=== PATIENT | male | born 1965 | race Caucasian/White ===

== ENCOUNTER 2017-08-31 21:11 | Observation (INO) | payer SELFPAY ==
[~2017-08-31] VITALS: Ht 190.5 cm; Wt 62.5 kg
[2017-08-31 21:15] VITALS: BP 128/91; PULSE 79; RESP 18; TEMP 98.1; O2SAT 98
[2017-08-31 21:30] VITALS: BP 139/92; PULSE 97; RESP 16; O2SAT 100
--- NOTE | 2017-08-31 21:39 | PD ---
HPI Chief Complaint: Chest Pain Time Seen by Provider: 21:26 Travel History International Travel<30 days: No Contact w/Intl Traveler<30days: No Traveled to known affect area: No History of Present Illness HPI 51-year-old male here for evaluation of chest pain. The patient was having chest pain that started before going to work today at 6:30 AM. Pain is across his entire anterior chest and radiates up into his neck, described as pressure, worse with inspiration and leaning forward. He smokes a pack of cigarettes daily. He denies any known history of cardiac disease. He no longer has a physician because he states his primary care physician retired. He is not on any medications. No history of DVT or PE. No fevers, chills, cough, or recent illness. No paresthesias or motor deficits. Patient reports that he went to work today and the pain has been constant throughout the day, intermittently worse at times, currently 7 out of 10. He is unsure if there is any family history of cardiac disease, however he states his brother of unknown causes at the age of 28 and his father at 73 of unknown causes last year. [facility] Past Medical History Medical History: Denies Significant Hx Immunizations Current: No Tetanus Vaccination: Unknown Influenza Vaccination: No Past Surgical History Surgical History: No Previous Surgery Social History Alcohol Use: Yes (2-3 BEERS DAILY) Tobacco Use: Yes (1 1/2 PPD) Substance Use: No Allergies-Medications (Allergen,Severity, Reaction): Coded Allergies: No Known Allergies (Unverified , 08/31/17) Reported Meds & Prescriptions Reported Meds & Active Scripts Active No Active Prescriptions or Reported Medications Review of Systems Except as stated in HPI: all other systems reviewed are Neg Physical Exam Narrative GENERAL: Well-developed, well-nourished, comfortable, no apparent distress. SKIN: Focused skin assessment warm/dry. HEAD: Atraumatic. Normocephalic. EYES: Pupils equal and round. No scleral icterus. No injection or drainage. ENT: Mucous membranes pink and moist. NECK: Trachea midline. No JVD. CARDIOVASCULAR: Regular rate and rhythm. Distal pulses brisk and equal bilaterally. RESPIRATORY: No accessory muscle use. Clear to auscultation. Breath sounds equal bilaterally. GASTROINTESTINAL: Abdomen soft, non-tender, nondistended. MUSCULOSKELETAL: No obvious deformities. No clubbing. No cyanosis. No edema. NEUROLOGICAL: Awake and alert. No obvious cranial nerve deficits. Motor grossly within normal limits. Normal speech. PSYCHIATRIC: Appropriate mood and affect; insight and judgment normal. Data Data Last Documented VS Vital Signs Date Time Temp Pulse Resp B/P (MAP) Pulse Ox O2 Delivery O2 Flow Rate FiO2 08/31/17 23:18 14 08/31/17 22:46 88 145/87 (106) 100 Nasal Cannula 2.00 08/31/17 21:15 98.1 Orders Orders Electrocardiogram (08/31/17 21:31) Ckmb (Isoenzyme) Profile (08/31/17 21:31) Complete Blood Count With Diff (08/31/17 21:31) Comprehensive Metabolic Panel (08/31/17 21:31) D-Dimer (08/31/17 21:31) Magnesium (Mg) (08/31/17 21:31) Prothrombin Time / Inr (Pt) (08/31/17 21:31) Act Partial Throm Time (Ptt) (08/31/17 21:31) Troponin I (08/31/17 21:31) Lipase (08/31/17 21:31) Chest, Single Ap (08/31/17 21:31) Ecg Monitoring (08/31/17 21:31) Bilateral Bp Monitoring (08/31/17 21:31) Iv Access Insert/Monitor (08/31/17 21:31) Oximetry (08/31/17 21:31) Oxygen Administration (08/31/17 21:31) Aspirin Chew (Aspirin Chew) (08/31/17 21:45) Sodium Chloride 0.9% Flush (Ns Flush) (08/31/17 21:45) Nitroglycerin Sl (Nitrostat Sl) (08/31/17 21:45) CKMB (08/31/17 21:30) CKMB% (08/31/17 21:30) Morphine Inj (Morphine Inj) (08/31/17 22:45) Ct Pulmonary Angiogram (08/31/17 22:31) Morphine Inj (Morphine Inj) (08/31/17 22:45) Iohexol 350 Inj (Omnipaque 350 Inj) (08/31/17 23:28) Labs Laboratory Tests Test 08/31/17 21:30 White Blood Count 10.6 TH/MM3 Red Blood Count 4.47 MIL/MM3 Hemoglobin 14.4 GM/DL Hematocrit 42.5 % Mean Corpuscular Volume 95.3 FL Mean Corpuscular Hemoglobin 32.3 PG Mean Corpuscular Hemoglobin Concent 34.0 % Red Cell Distribution Width 12.2 % Platelet Count 204 TH/MM3 Mean Platelet Volume 9.7 FL Neutrophils (%) (Auto) 64.6 % Lymphocytes (%) (Auto) 18.1 % Monocytes (%) (Auto) 9.5 % Eosinophils (%) (Auto) 3.9 % Basophils (%) (Auto) 3.9 % Neutrophils # (Auto) 6.8 TH/MM3 Lymphocytes # (Auto) 1.9 TH/MM3 Monocytes # (Auto) 1.0 TH/MM3 Eosinophils # (Auto) 0.4 TH/MM3 Basophils # (Auto) 0.4 TH/MM3 CBC Comment DIFF FINAL Differential Comment Prothrombin Time 10.0 SEC Prothromb Time International Ratio 0.9 RATIO Activated Partial Thromboplast Time 31.2 SEC D-Dimer Quantitative (PE/DVT) 0.27 MG/L FEU Blood Urea Nitrogen 17 MG/DL Creatinine 1.00 MG/DL Random Glucose 82 MG/DL Total Protein 7.9 GM/DL Albumin 4.2 GM/DL Calcium Level 8.4 MG/DL Magnesium Level 2.3 MG/DL Alkaline Phosphatase 66 U/L Aspartate Amino Transf (AST/SGOT) 31 U/L Alanine Aminotransferase (ALT/SGPT) 32 U/L Total Bilirubin 0.3 MG/DL Sodium Level 131 MEQ/L Potassium Level 3.9 MEQ/L Chloride Level 95 MEQ/L Carbon Dioxide Level 25.5 MEQ/L Anion Gap 11 MEQ/L Estimat Glomerular Filtration Rate 79 ML/MIN Total Creatine Kinase 219 U/L Creatine Kinase MB 5.2 NG/ML Troponin I LESS THAN 0.02 NG/ML Lipase 173 U/L MDM Medical Decision Making Medical Screen Exam Complete: Yes Emergency Medical Condition: Yes Interpretation(s) EKG: Sinus, rate 81, normal axis, normal intervals, Q waves in septal leads, no acute ischemic abnormality. Differential Diagnosis ACS, pneumothorax, pericarditis, PE, pneumonia, musculoskeletal pain, pleurisy, dissection, Narrative Course Initial vital signs show heart rate 79, blood pressure 128/91, pulse ox 98% on room air, oral temp of 98.1F. CBC: WBC 10.6, hemoglobin 14.4, hematocrit 42.5, platelets 204. CMP is remarkable for sodium 131, chloride 91, otherwise essentially unremarkable. Lipase is 173. Cardiac enzymes are negative. Chest x-ray: No acute cardiopulmonary disease. The patient was given a full aspirin and 2 sublingual nitroglycerin with continued chest pain. He states his pain is much worse with inspiration. Despite a negative d-dimer, CT pulmonary angiogram was ordered to rule out PE or possible dissection. CT pulmonary angiogram: CONCLUSION: Nodular and cavitary process in the right lung is most probably inflammatory. Followup with short interval CT in 3 months versus further evaluation with PET/ CT is suggested. 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 No recent upper respiratory symptoms. Patient will be admitted to the chest pain center for further cardiac evaluation. He is amenable to this plan. He was made aware of all findings and was provided a copy of the CT pulmonary angiogram. Case discussed with hospitalist Dr. Zapien who will admit the patient to his service for further cardiac evaluation as well as pulmonary consultation. Diagnosis Primary Impression: Chest pain Qualified Codes: R07.9 - Chest pain, unspecified Additional Impressions: Pulmonary nodule Pulmonary cavitary lesion Admitting Information Admitting Physician Requests: Observation Scripts No Active Prescriptions or Reported Meds Suhail Bell MD Aug 31, 2017 21:39
[2017-08-31] MEDS ORDERED: ASPIRIN 81 MG CHEW TAB PO ONE (21:45)
[2017-08-31] MEDS ORDERED: SODIUM CHLORIDE 0.9% FLUSH 10 ML FLUSH IVF PRN (21:45)
[2017-08-31 21:49] LABS: AUTOMATED NEUTROPHIL # 6.8 TH/MM3 (1.8-7.7); BASOPHIL # 0.4 TH/MM3 (0-0.2); BASOPHIL % 3.9 % (0.0-2.0); EOSINOPHIL # 0.4 TH/MM3 (0-0.4); EOSINOPHIL % 3.9 % (0.0-4.0); HEMATOCRIT 42.5 % (39.0-51.0); HEMOGLOBIN 14.4 GM/DL (13.0-17.0); LYMPH % 18.1 % (9.0-44.0); LYMPHOCYTE # 1.9 TH/MM3 (1.0-4.8); MEAN CELL VOLUME 95.3 FL (80.0-100.0); MEAN CORPUSCULAR HEMOGLOBIN 32.3 PG (27.0-34.0); MEAN PLATELET VOLUME 9.7 FL (7.0-11.0); MONO % 9.5 % (0.0-8.0); NEUT % 64.6 % (16.0-70.0); PLATELET COUNT 204 TH/MM3 (150-450); RED BLOOD COUNT 4.47 MIL/MM3 (4.50-5.90); RED CELL DISTRIBUTION WIDTH 12.2 % (11.6-17.2); WHITE BLOOD COUNT 10.6 TH/MM3 (4.0-11.0)
[2017-08-31] MEDS: NITROGLYCERIN 0.4 MG SL 25 TABS/BTL SL SCH ×3 (21:55→22:30)
[2017-08-31 21:56] LABS: CHLORIDE 95 MEQ/L (98-107); SODIUM (NA) 131 MEQ/L (136-145)
--- NOTE | 2017-08-31 21:56 | RADRPT ---
EXAM DATE/TIME: 08/31/2017 21:38 [facility] COMPARISON: No previous studies available for comparison. INDICATIONS : Chest pain. MEDICAL HISTORY : None. SURGICAL HISTORY : None. ENCOUNTER: Initial ACUITY: 1 day PAIN SCORE: 10/10 LOCATION: Bilateral chest FINDINGS: A single AP erect portable view of the chest was obtained and demonstrates no confluent infiltrates o r effusions. The heart and mediastinal structures are within normal limits. The bony thorax is intact . There are overlying electrocardiogram leads. CONCLUSION: No acute cardiopulmonary disease. Nixon Rea MD on August 31, 2017 at 21:50 Board Certified Radiologist. This report was verified electronically.
[2017-08-31 22:01] LABS: ALBUMIN 4.2 GM/DL (3.4-5.0); BICARBONATE 25.5 MEQ/L (21.0-32.0); CALCIUM 8.4 MG/DL (8.5-10.1); GLUCOSE,RANDOM 82 MG/DL (74-106); INTERNATIONAL NORMALIZED RATIO 0.9 RATIO; LIPASE 173 U/L (73-393)
[2017-08-31 22:02] LABS: BLOOD UREA NITROGEN 17 MG/DL (7-18); MAGNESIUM 2.3 MG/DL (1.5-2.5)
[2017-08-31 22:04] LABS: ALT (GPT) 32 U/L (12-78); AST (GOT) 31 U/L (15-37); GLOMERULAR FILTRATION RATE 79 ML/MIN (>89)
[2017-08-31 22:05] LABS: TOTAL BILIRUBIN ADULT 0.3 MG/DL (0.2-1.0); TOTAL PROTEIN 7.9 GM/DL (6.4-8.2)
[2017-08-31 22:06] LABS: ALKALINE PHOSPHATASE 66 U/L (45-117); TROPONIN I LESS THAN 0.02 NG/ML (0.02-0.05)
[2017-08-31 22:16] LABS: D-DIMER 0.27 MG/L FEU (0.00-0.50)
[2017-08-31 22:30] VITALS: BP 145/87; PULSE 77; RESP 15; O2SAT 99
[2017-08-31] MEDS ORDERED: MORPHINE SULFATE 8 MG/ML INJ IV PUSH ONE (22:45)
[2017-08-31] MEDS ORDERED: MORPHINE SULFATE 4 MG/ML INJ IV PUSH ONE (22:45)
[2017-08-31 22:46] VITALS: BP 145/87; PULSE 88; RESP 14; O2SAT 100
[2017-08-31] MEDS ORDERED: IOHEXOL 350 MG/ML 10 ML VIAL (for RAD DIAG) IVCONTRAST ONE (23:28)
--- NOTE | 2017-08-31 23:48 | RADRPT ---
EXAM DATE/TIME: 08/31/2017 23:06 [facility] COMPARISON: CHEST SINGLE AP, August 31, 2017, 21:38. INDICATIONS : Anterior chest pain. Evalaute for embolism. IV CONTRAST: 75 cc Omnipaque 350 (iohexol) IV RADIATION DOSE: 7.67 CTDIvol (mGy) MEDICAL HISTORY : None SURGICAL HISTORY : None. ENCOUNTER: Initial ACUITY: 1 day PAIN SCALE: 9/10 LOCATION: chest anterior TECHNIQUE: Volumetric scanning of the chest was performed using a pulmonary embolism protocol MIP images were re constructed. Using automated exposure control and adjustment of the mA and/or kV according to patien t size, radiation dose was kept as low as reasonably achievable to obtain optimal diagnostic quality images. DICOM format image data is available electronically for review and comparison. Follow-up recommendations for detected pulmonary nodules are based at a minimum on nodule size and pa tient risk factors according to Fleischner Society Guidelines. FINDINGS: PULMONARY ARTERIES: No filling defects are seen in the pulmonary arteries through the segmental level. LUNGS: There is a 2.4 cm thin-walled cavitary process in the anterior right perihilar region with an adjacen t 15 mm irregular nodular parenchymal density. There is baseline emphysema. Minimal scarring or atele ctasis in the posterior lung bases. PLEURAE: There is no pleural thickening or pleural effusion. MEDIASTINUM: There is good visualization of the great vessels of the middle mediastinum. Minimal prominence of rig ht hilar and central mediastinal cyndie tissue which may be reactive. MUSCULOSKELETAL: Within normal limits for patient age. MISCELLANEOUS: The visualized upper abdominal organs demonstrate no acute abnormality. CONCLUSION: Nodular and cavitary process in the right lung is most probably inflammatory. Followup with short int erval CT in 3 months versus further evaluation with PET/CT is suggested. Matthew Laguerre MD on August 31, 2017 at 23:40 Board Certified Radiologist. This report was verified electronically.
[2017-09-01] VITALS (7 sets, daily range): BP systolic 95–122; BP diastolic 59–74; PULSE 77–91; RESP 14–20; TEMP 97.8–99.6; O2SAT 94–99
[2017-09-01] MEDS ORDERED: SODIUM CHLORIDE 0.9% FLUSH 10 ML FLUSH IV FLUSH PRN (01:00)
[2017-09-01 02:03] LABS: TROPONIN I LESS THAN 0.02 NG/ML (0.02-0.05)
[2017-09-01] MEDS ORDERED: KETOROLAC TROMETHAMINE 30 MG/ML (IVP) VIAL IV PUSH ONE (03:15)
[2017-09-01 04:11] LABS: TROPONIN I LESS THAN 0.02 NG/ML (0.02-0.05)
[2017-09-01] MEDS ORDERED: SODIUM CHLORIDE 0.9% FLUSH 10 ML FLUSH IV FLUSH SCH (09:00)
--- NOTE | 2017-09-01 09:36 | HHI.HP ---
HPI Service [facility] Primary Care Physician No Primary Care Physician Admission Diagnosis chest pain, pulmonary nodule, pulmonary cavitary lesion Diagnoses: (1) Chest pain Chief Complaint: Chest pain Travel History International Travel<30 Days: No Contact w/Intl Traveler <30 Da: No Traveled to Known Affected Are: No History of Present Illness Mr. Sanchez is a 51-year-old male patient with a known history of tobacco abuse who presented to the ED with complaints of chest pain. 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 He states he has never had complaints of chest pain in the past. The pain is "ripping and jabbing" in nature, and radiates all across his chest. Denies any radiation of pain to his neck, jaw or arm. The pain at its worse is an 8/10 and has been constant since it began. Does state that the pain is worse with inspiration. He states that the medication has eased the pain some and will slowly return. Patient does not see a regional vice president life sales or PCP. Admits to smoking 1.5 packs of cigarettes a day for 35 years. Denies any recent illness including fever, chills, headache, dizziness, cough, shortness of breath, ab pain, n/v/d or dysuria. Does admit to father dying at the age of 73 due to cardiovascular disease. Review of Systems Constitutional: DENIES: Fever, Chills Endocrine: DENIES: Polyuria Eyes: DENIES: Blurred vision, Eye pain Respiratory: DENIES: Cough, Shortness of breath Cardiovascular: COMPLAINS OF: Chest pain, Palpitations Gastrointestinal: DENIES: Abdominal pain, Constipation, Diarrhea, Nausea, Vomiting Musculoskeletal: DENIES: Joint pain Psychiatric: DENIES: Anxiety Except as stated in HPI: all other systems reviewed are Neg Past Family Social History Past Medical History Tobacco abuse Past Surgical History Denies any prior surgery. Reported Medications Active No Active Prescriptions or Reported Medications Allergies: Coded Allergies: No Known Allergies (Unverified , 08/31/17) Active Ordered Medications Current Medications Medications (Trade) Dose Ordered Sig/Crystal Route Start Time Stop Time Status Last Admin (NS Flush) 2 ml UNSCH PRN IV FLUSH 09/01/17 01:00 (NS Flush) 2 ml BID IV FLUSH 09/01/17 09:00 09/01/17 08:36 Family History Paternal family medical history significant for cardiovascular disease. Does state that his brother at an early age of unknown causes. Social History Admits to smoking 1.5 packs of cigarettes a day for the past 35 years. Admits to drinking 2-3 beers a day. Does admit to occasional marijuana use. Physical Exam Vital Signs Vital Signs Date Time Temp Pulse Resp B/P (MAP) Pulse Ox O2 Delivery O2 Flow Rate FiO2 09/01/17 08:00 97.8 77 16 122/70 (87) 96 09/01/17 04:30 94 21 09/01/17 04:00 98.4 77 20 95/59 (71) 94 09/01/17 02:13 99.6 77 20 107/69 (82) 96 09/01/17 02:08 77 09/01/17 01:42 98.4 82 14 103/61 (75) 99 09/01/17 00:53 91 14 119/74 (89) 99 08/31/17 23:18 14 08/31/17 22:46 88 14 145/87 (106) 100 Nasal Cannula 2.00 08/31/17 22:41 14 08/31/17 22:30 77 15 145/87 (106) 99 Nasal Cannula 2.00 08/31/17 21:30 97 16 139/92 (108) 100 Nasal Cannula 2.00 08/31/17 21:30 99 Nasal Cannula 2.00 08/31/17 21:21 18 98 Room Air 08/31/17 21:15 98.1 79 18 128/91 (103) 98 Physical Exam GENERAL: This is a well-nourished, well-developed male patient, in no apparent distress. SKIN: No rashes, ecchymoses or lesions. Warm and dry. HEENT: Atraumatic. Normocephalic. Pupils equal round and reactive. Extraocular motions intact. No scleral icterus. No injection or drainage. Nose without bleeding. Throat without erythema, tonsillar hypertrophy or exudate. Airway patent. NECK: Trachea midline. No JVD. Supple. CARDIOVASCULAR: Regular rate and rhythm without murmurs, gallops, or rubs. No reproducible chest discomfort to palpation. RESPIRATORY: Clear to auscultation. Breath sounds equal bilaterally. No wheezes , rales, or rhonchi. GASTROINTESTINAL: Abdomen soft, non-tender, nondistended. No hepato-splenomegaly , or palpable masses. No guarding. Active bs x 4 q. MUSCULOSKELETAL: Extremities without clubbing, cyanosis, or edema. No joint tenderness, effusion, or edema noted. NEUROLOGICAL: Awake and alert. Cranial nerves II through XII intact. Motor and sensory grossly within normal limits. Five out of 5 muscle strength in all muscle groups. Normal speech. Laboratory Laboratory Tests Test 08/31/17 21:30 09/01/17 01:35 09/01/17 03:30 White Blood Count 10.6 Red Blood Count 4.47 Hemoglobin 14.4 Hematocrit 42.5 Mean Corpuscular Volume 95.3 Mean Corpuscular Hemoglobin 32.3 Mean Corpuscular Hemoglobin Concent 34.0 Red Cell Distribution Width 12.2 Platelet Count 204 Mean Platelet Volume 9.7 Neutrophils (%) (Auto) 64.6 Lymphocytes (%) (Auto) 18.1 Monocytes (%) (Auto) 9.5 Eosinophils (%) (Auto) 3.9 Basophils (%) (Auto) 3.9 Neutrophils # (Auto) 6.8 Lymphocytes # (Auto) 1.9 Monocytes # (Auto) 1.0 Eosinophils # (Auto) 0.4 Basophils # (Auto) 0.4 CBC Comment DIFF FINAL Differential Comment Prothrombin Time 10.0 Prothromb Time International Ratio 0.9 Activated Partial Thromboplast Time 31.2 D-Dimer Quantitative (PE/DVT) 0.27 Blood Urea Nitrogen 17 Creatinine 1.00 Random Glucose 82 Total Protein 7.9 Albumin 4.2 Calcium Level 8.4 Magnesium Level 2.3 Alkaline Phosphatase 66 Aspartate Amino Transf (AST/SGOT) 31 Alanine Aminotransferase (ALT/SGPT) 32 Total Bilirubin 0.3 Sodium Level 131 Potassium Level 3.9 Chloride Level 95 Carbon Dioxide Level 25.5 Anion Gap 11 Estimat Glomerular Filtration Rate 79 Total Creatine Kinase 219 165 154 Creatine Kinase MB 5.2 3.3 Troponin I LESS THAN 0.02 LESS THAN 0.02 LESS THAN 0.02 Lipase 173 Result Diagram: 10/31/17 2130 10/31/17 [address] Angiography 08/31/172230 Signed Impressions: Service Date/Time: Thursday, August 31, 2017 23:06 - CONCLUSION: Nodular and cavitary process in the right lung is most probably inflammatory. Followup with short interval CT in 3 months versus further evaluation with PET/CT is suggested. Matthew Laguerre MD Chest X-Ray 08/31/172130 Signed Impressions: Service Date/Time: Thursday, August 31, 2017 21:38 - CONCLUSION: No acute cardiopulmonary disease. Nixon Rea MD Capbriani VTE Risk Assessment Caprini VTE Risk Assessment: No/Low Risk (score <= 1) Caprini Risk Assessment Model Point Value = 1 Point Value = 2 Point Value = 3 Point Value = 5 Age 41-60 Minor surgery BMI > 25 kg/m2 Swollen legs Varicose veins or History of unexplained or recurrent spontaneous Oral contraceptives or hormone replacement Sepsis (< 1 month) Serious lung disease, including pneumonia (< 1 month) Abnormal pulmonary function Acute myocardial infarction Congestive heart failure (< 1 month) History of inflammatory bowel disease Medical patient at bed rest Age 61-74 Arthroscopic surgery Major open surgery (> 45 min) Laparoscopic surgery (> 45 min) Malignancy Confined to bed (> 72 hours) Immobilizing plaster cast Central venous access Age >= 75 History of VTE Family history of VTE Factor V Leiden Prothrombin 29403H Lupus anticoagulant Anticardiolipin antibodies Elevated serum homocysteine Heparin-induced thrombocytopenia Other congenital or acquired thrombophilia Stroke (< 1 month) Elective arthroplasty Hip, pelvis, or leg fracture Acute spinal cord injury (< 1 month) Prophylaxis Regimen Total Risk Factor Score Risk Level Prophylaxis Regimen 0-1 Low Early ambulation 2 Moderate Order ONE of the following: *Sequential Compression Device (SCD) *Heparin 5000 units SQ BID 3-4 Higher Order ONE of the following medications: *Heparin 5000 units SQ TID *Enoxaparin/Lovenox 40 mg SQ daily (WT < 150 kg, CrCl > 30 mL/min) *Enoxaparin/Lovenox 30 mg SQ daily (WT < 150 kg, CrCl > 10-29 mL/min) *Enoxaparin/Lovenox 30 mg SQ BID (WT < 150 kg, CrCl > 30 mL/min) AND/OR *Sequential Compression Device (SCD) 5 or more Highest Order ONE of the following medications: *Heparin 5000 units SQ TID (Preferred with Epidurals) *Enoxaparin/Lovenox 40 mg SQ daily (WT < 150 kg, CrCl > 30 mL/min) *Enoxaparin/Lovenox 30 mg SQ daily (WT < 150 kg, CrCl > 10-29 mL/min) *Enoxaparin/Lovenox 30 mg SQ BID (WT < 150 kg, CrCl > 30 mL/min) AND *Sequential Compression Device (SCD) Assessment and Plan Assessment and Plan Mr. Sanchez is a 51-year-old male patient with a known history of tobacco abuse who presented to the ED with complaints of chest pain. 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 Atypical chest pain likely musculoskeletal in nature - Admitted to the chest pain center. Serial EKGs and troponins completed to rule out any ischemia. EKG reviewed and unremarkable. Serial troponins flat. Toradol given x 1 which relieved pain. Aspirin and sublingual Nitroglycerin given. - CXR reviewed and unremarkable. D-dimer negative. CTA reviewed showing a nodular cavitary process in the right lung is most probably inflammatory. Does admit to a history of TB as a child. Recommended follow up in 3 months. Patient understands and agreeable. - Performed a treadmill stress test to rule out any ischemia. Test read by Dr. Murillo and is normal, OK to discharge home. NSAIDs PRN for pain relief. Tobacco abuse: Encouraged cessation. Patient counselled. Problem Qualifiers (1) Chest pain: Qualified Codes: R07.9 - Chest pain, unspecified Blessing Allan Sep 01, 2017 09:36
--- NOTE | 2017-09-01 11:16 | HHI.DCPOC ---
Discharge Care Plan Diagnosis: (1) Chest pain (2) Pulmonary nodule Your Health Problems Are: Chest Pain Goals to Promote Your Health * To prevent worsening of your condition and complications * To maintain your health at the optimal level Directions to Meet Your Goals Take your medications as prescribed Follow your dietary instruction Follow activity as directed Keep your appointments as scheduled Take your immunizations and boosters as scheduled If your symptoms worsen call your PCP, if no PCP go to Urgent Care Center or Emergency Room Smoking is Dangerous to Your Health. Avoid second hand smoke Call the 24-hour hour crisis hotline for domestic abuse at Blessing Allan Sep 01, 2017 11:16
--- NOTE | 2017-09-01 11:16 | HHI.DCPOC ---
Discharge Care Plan Diagnosis: (1) Chest pain (2) Pulmonary nodule Your Health Problems Are: Chest Pain Goals to Promote Your Health * To prevent worsening of your condition and complications * To maintain your health at the optimal level Directions to Meet Your Goals Take your medications as prescribed Follow your dietary instruction Follow activity as directed Keep your appointments as scheduled Take your immunizations and boosters as scheduled If your symptoms worsen call your PCP, if no PCP go to Urgent Care Center or Emergency Room Smoking is Dangerous to Your Health. Avoid second hand smoke Call the 24-hour hour crisis hotline for domestic abuse at Blessing Allan Sep 01, 2017 11:16
--- NOTE | 2017-09-01 11:16 | HHI.DCPOC ---
Discharge Care Plan Diagnosis: (1) Chest pain (2) Pulmonary nodule Your Health Problems Are: Chest Pain Goals to Promote Your Health * To prevent worsening of your condition and complications * To maintain your health at the optimal level Directions to Meet Your Goals Take your medications as prescribed Follow your dietary instruction Follow activity as directed Keep your appointments as scheduled Take your immunizations and boosters as scheduled If your symptoms worsen call your PCP, if no PCP go to Urgent Care Center or Emergency Room Smoking is Dangerous to Your Health. Avoid second hand smoke Call the 24-hour hour crisis hotline for domestic abuse at Blessing Allan Sep 01, 2017 11:16
--- NOTE | 2017-09-01 11:39 | EKG ---
Date Performed: 09/01/2017 Time Performed: 04:38:57 PTAGE: 51 years EKG: Sinus rhythm ABNORMAL ECG PREVIOUS TRACING : 08/31/2017 21.38 Since previous tracing, no significant change noted DOCTOR: Humberto Murillo Interpretating Date/Time 09/01/2017 11:38:21
--- NOTE | 2017-09-01 11:41 | EKG ---
Date Performed: 09/01/2017 Time Performed: 01:17:40 PTAGE: 51 years EKG: Sinus rhythm ABNORMAL ECG PREVIOUS TRACING : 08/31/2017 21.38 Since previous tracing, no significant change noted DOCTOR: Humberto Murillo Interpretating Date/Time 09/01/2017 11:39:44
--- NOTE | 2017-09-01 11:42 | EKG ---
Date Performed: 08/31/2017 Time Performed: 21:38:38 PTAGE: 51 years EKG: Sinus rhythm NO PREVIOUS TRACING DOCTOR: Humberto Murillo Interpretating Date/Time 09/01/2017 11:41:07
--- NOTE | 2017-09-01 11:42 | EKG ---
Date Performed: 08/31/2017 Time Performed: 21:38:38 PTAGE: 51 years EKG: Sinus rhythm NO PREVIOUS TRACING DOCTOR: uHmberto Murillo Interpretating Date/Time 09/01/2017 11:41:07
--- NOTE | 2017-09-01 11:42 | EKG ---
Date Performed: 08/31/2017 Time Performed: 21:38:38 PTAGE: 51 years EKG: Sinus rhythm NO PREVIOUS TRACING DOCTOR: Humberto Murillo Interpretating Date/Time 09/01/2017 11:41:07
--- NOTE | 2017-09-01 11:44 | TR ---
Date Performed: 09/01/2017 Time Performed: 10:30:35 DOCTOR: Humberto Murillo DRUG LIST: CLINICAL HISTORY: CHEST PAIN REASON FOR TEST: Chest pain REASON FOR ENDING: OBSERVATION: CONCLUSION: Eric protocol completed. Test stopped secondary to meeting target heart rate. No wo rsening chest discomfort. No arrthythmias. Good exercise tolerance. Good BP response. Recovery quick and unremarkable.Maximum GK=969 % Target HR Nkaxqcaj=356.0Maximum CA=343/50 Total Exercise Time=9:24 COMMENTS: Patient exercised using the Eric protocol. No electrocardiographic changes were seen to suggest ischemia. Hemodynamic response to exercise was normal. No significant arrhythmia was prese nt.
--- NOTE | 2017-09-01 11:44 | TR ---
Date Performed: 09/01/2017 Time Performed: 10:30:35 DOCTOR: Humberto Murillo DRUG LIST: CLINICAL HISTORY: CHEST PAIN REASON FOR TEST: Chest pain REASON FOR ENDING: OBSERVATION: CONCLUSION: Eric protocol completed. Test stopped secondary to meeting target heart rate. No wo rsening chest discomfort. No arrthythmias. Good exercise tolerance. Good BP response. Recovery quick and unremarkable.Maximum RL=025 % Target HR Dchgggbi=515.0Maximum PN=363/50 Total Exercise Time=9:24 COMMENTS: Patient exercised using the Eric protocol. No electrocardiographic changes were seen to suggest ischemia. Hemodynamic response to exercise was normal. No significant arrhythmia was prese nt.
--- NOTE | 2017-09-01 11:44 | TR ---
Date Performed: 09/01/2017 Time Performed: 10:30:35 DOCTOR: Humberto Murillo DRUG LIST: CLINICAL HISTORY: CHEST PAIN REASON FOR TEST: Chest pain REASON FOR ENDING: OBSERVATION: CONCLUSION: Eric protocol completed. Test stopped secondary to meeting target heart rate. No wo rsening chest discomfort. No arrthythmias. Good exercise tolerance. Good BP response. Recovery quick and unremarkable.Maximum IC=175 % Target HR Kwzgmtao=405.0Maximum LW=255/50 Total Exercise Time=9:24 COMMENTS: Patient exercised using the Eric protocol. No electrocardiographic changes were seen to suggest ischemia. Hemodynamic response to exercise was normal. No significant arrhythmia was prese nt.
== END 2017-09-01 11:53 | disposition home or self-care (01) ==
LOC: PHED 21:11 → PHEDA 09-01 00:56 → PH3B 09-01 02:00
PROVIDERS: ADMIT Family Medicine; ATTEND Family Medicine
DX: R07.9 Chest pain, unspecified (principal); R91.1 Solitary pulmonary nodule; F17.210 Nicotine dependence, cigarettes, uncomplicated; Z86.11 Personal history of tuberculosis; R94.31 Abnormal electrocardiogram [ECG] [EKG]
CPT/HCPCS: 71010; 71275; 80053; 82550; 82552; 83690; 83735; 84484; 85025; 85379; 85610; 85730; 93005; 93017; 96374; 96375; 96376; 99285; G0378; J1885; J2270; Q9967

== ENCOUNTER 2018-01-12 09:15 | Emergency (ER) | payer SELFPAY ==
[~2018-01-12] VITALS: Ht 190.5 cm; Wt 67.0 kg
[2018-01-12 09:18] VITALS: BP 148/67; PULSE 80; RESP 16; TEMP 98.4; O2SAT 100
--- NOTE | 2018-01-12 10:01 | PD ---
HPI Chief Complaint: Injury Time Seen by Provider: 09:49 Travel History International Travel<30 days: No Contact w/Intl Traveler<30days: No Traveled to known affect area: No History of Present Illness HPI This patient complains of left knee pain. 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 He thinks that he got an infection in his left knee. There is an area of redness and pain. He is worried there may be a foreign body there. May be he kneeled on a palpable or shard of porcelain he says. He does not specifically aware of any time that he got a foreign body though. Symptom severity is moderate. PFSH Past Medical History Asthma: No Cardiovascular Problems: No COPD: No Genitourinary: No Musculoskeletal: No Neurologic: No Reproductive: No Respiratory: Yes (TB and pneumomia as a child) Immunizations Current: No Sleep Apnea: No Tetanus Vaccination: > 5 Years Influenza Vaccination: No Past Surgical History Abdominal Surgery: No Cardiac Surgery: No Genitourinary Surgery: No Thoracic Surgery: No Other Surgery: Yes Social History Alcohol Use: Yes (ON WEEKENDS) Tobacco Use: Yes (6 CIGARETTES DAILY) Substance Use: Yes (OCCASIONAL MARIJUANA) Allergies-Medications (Allergen,Severity, Reaction): Coded Allergies: No Known Allergies (Unverified , 01/12/18) Reported Meds & Prescriptions Reported Meds & Active Scripts Active No Active Prescriptions or Reported Medications Review of Systems General / Constitutional: No: Fever HENT: No: Headaches Cardiovascular: No: Chest Pain or Discomfort Gastrointestinal: No: Nausea Physical Exam Narrative SKIN: Focused skin assessment reveals no rash or ulcers. Skin is warm and dry. Palpation shows no induration or nodules. Psych: Normal mood and affect. Normal insight and judgment. Left knee: Good range of motion. No bony tenderness or effusion. Just distal to the knee there is a circular area of redness and tenderness. It is about a centimeter diameter. There is a tiny central black punctum. Data Data Last Documented VS Vital Signs Date Time Temp Pulse Resp B/P (MAP) Pulse Ox O2 Delivery O2 Flow Rate FiO2 01/12/18 09:18 98.4 80 16 148/67 (94) 100 Orders Orders Knee, Ltd (1 Or 2vws) (01/12/18 ) [facility] [place] Medical Decision Making Medical Screen Exam Complete: Yes Emergency Medical Condition: Yes Medical Record Reviewed: Yes Differential Diagnosis Infected lesion, foreign body, abscess Narrative Course I have reviewed the patient's electronic medical record. I obtained some soft tissue x-rays to evaluate for foreign body He has an area of infection. Prescribed some Bactrim Does not involve the knee joint On a clinical basis it is not overly suspicious for foreign body but there could be something small in there. I explained that blindly digging for foreign body is not recommended. Recommend outpatient follow-up Diagnosis Primary Impression: Infected lesion of skin Additional Instructions: Take antibiotics and use warm compresses The patient was advised to follow up with their physician and return if they worsen. Med/Other Pt SpecificInfo: Prescription(s) given Scripts Sulfamethoxazole-Trimethoprim (Bactrim DS) 800-160 Mg Tab 1 TAB PO BID for Infection, #14 TAB 0 Refills Prov: Matt Cali MD 01/12/18 Disposition: 01 DISCHARGE HOME Condition: Stable Matt Cali MD Jan 12, 2018 10:01
[2018-01-12] MEDS ORDERED: BACT800T5 PO (11:02)
--- NOTE | 2018-01-12 11:10 | RADRPT ---
EXAM DATE/TIME: 01/12/2018 10:19 [place] COMPARISON: No previous studies available for comparison. 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 MEDICAL HISTORY : None. SURGICAL HISTORY : None. ENCOUNTER: Initial ACUITY: 4 - 6 days PAIN SCORE: 9/10 LOCATION: Left knee FINDINGS: Two view examination of the left knee demonstrates no evidence of fracture or dislocation. Bony mine ralization is normal. The suprapatellar soft tissues have a normal configuration. Mild pretibial sof t tissue swelling. CONCLUSION: Upper pretibial soft tissue swelling without visible radiopaque foreign body. No acute bony abnormali ty. Chilo Zheng MD on January 12, 2018 at 11:07 Board Certified Radiologist. This report was verified electronically.
== END 2018-01-12 11:39 | disposition home or self-care (01) ==
LOC: PHEFT 09:15
DX: L08.9 Local infection of the skin and subcutaneous tissue, unspecified (principal); F12.90 Cannabis use, unspecified, uncomplicated; F17.210 Nicotine dependence, cigarettes, uncomplicated; M25.562 Pain in left knee
CPT/HCPCS: 73560; 99283